=== PATIENT | female | born 1965 ===

== ENCOUNTER → 2022-10-17 | Outpatient (CLI) | payer OTHER ==
[~2022-10-17] MED LIST: GLUCOTROL10 MG; SEPTRA DS TABLE1 TAB PO
== END | disposition home or self-care (01) ==
LOC: SONOGRAMA 10:26
PROVIDERS: ATTEND Pathology Anatomic Pathology & Clinical Pathology
DX: D34 Benign neoplasm of thyroid gland (principal); E04.2 Nontoxic multinodular goiter